=== PATIENT | male | born 1945 | race Caucasian/White ===

== ENCOUNTER 2020-01-03 12:43 | Emergency (ER) | payer OTHER, SELFPAY ==
[2020-01-03 12:47] VITALS: BP 156/76; PULSE 80; RESP 18; TEMP 36.7; O2SAT 96; BMI 24.5
--- NOTE | 2020-01-03 12:59 | CT_ITS ---
WS: [id number] CT ABDOMEN PELVIS TECHNIQUE: Noncontrast CT of the abdomen and pelvis with coronal and sagittal reformatted images. CLINICAL INFORMATION: abd pain COMPARISON: None. DLP: 421.[address] scans at [facility] use at least one of these dose optimization techniques: automat ed exposure control; mA and/or kV adjustment per patient size (includes targeted exams where dose is matched to clinical indication); or iterative reconstruction. FINDINGS: Noncontrast liver is unremarkable. A few hepatic cysts the largest measuring 1.9 cm left hepatic lobe . Normal gallbladder. Lung bases are well aerated. Subsegmental atelectasis in the lung bases. Normal GE junction. Fatty atrophy of the pancreas. Normal caliber abdominal aorta. Aortic calcification. Tortuous common iliac arteries bilaterally. Mild diffuse bladder wall thickening with urine distended bladder. This can be seen with chronic cyst itis or bladder outlet obstruction. Prominent prostate measuring 4.5 cm. Recommend correlation PSA. Normal sigmoid colon. Adrenal glands are normal. No hydronephrosis in either kidney. Pelvic phlebolit hs. No obstructing renal or ureteral calculi. No periaortic lymphadenopathy. No inguinal lymphadenopa thy. Disc space narrowing throughout the lumbar spine. CT/CT abdomen pelvis wo con [id number] IMPRESSION: 1. No hydronephrosis in either kidney. No obstructing renal or ureteral calcul i. 2. Urine distended bladder with mild wall thickening. This can be seen with ch ronic cystitis or bladder outlet obstruction. Prominent prostate measuring 4.5 CM. Recommend correlation PSA. 3. Normal sigmoid colon. 4. No evidence of small or large bowel obstruction. 5. A few hepatic cysts largest in left hepatic lobe measuring 1.9 CM. 6. Subsegmental atelectasis in the lung bases. 7. Normal caliber abdominal aorta with tortuous iliac arteries.
--- NOTE | 2020-01-03 13:15 | ED_ITS ---
HPI - Male Genitourinary General: Chief complaint: Urogenital-Male Stated complaint: kidney problems Time Seen by Provider: 01/03/20 12:51 Source: patient Mode of arrival: ambulatory Limitations: no limitations History of Present Illness: HPI Narrative: Jose is a 74-year-old male states he has been having difficulty urinating over the last 2 weeks. He states that he is unable to get a good stream and mainly has dribbling. He has some lower abdominal pain and feels like he just cannot empty his bladder. He denies any fever. He denies any vomiting or diarrhea. Associated symptoms: Deny nausea or vomiting Review of Systems Const: Denies: fever(s), chills, body aches or change in appetite Eyes: Denies: blurry vision or eye discomfort ENMT: Denies: throat pain or dental pain Card: Denies: chest pain Resp: Denies: dyspnea GI: Denies: abdominal pain, nausea, vomiting or diarrhea : Reports: difficulty urinating, urinary frequency, urinary hesitancy and urinary dribbling Musc: Denies: neck pain or back pain Skin/Breast: Denies: rash Neuro: Denies: headache(s) Psych: Denies: depression Artur/Lymph: Denies: easy bruising All/Imm: Denies: urticaria PFSH ED PFSH: Family History Mother , IN HER 80'S PROGRESSIVE DEMENTIA Dementia Father , AT AGE 86 Stroke Social History Smoking and tobacco status: current every day smoker cigars Alcohol intake: unknown Adopted: No Caregiver/support person: No Lives independently: No Household members: spouse Marital status: Current occupational status: retired Physical Exam Const: COMMON NORMALS: no acute distress, patient oriented x3 and healthy appearing HENMT: COMMON NORMALS: normocephalic and atraumatic HEAD & SCALP: normocephalic and atraumatic Eye: COMMON NORMALS: Equal, round and reactive pupils present and EOMs intact bilaterally PUPIL: Yes Equal, round and reactive pupils present Neck/C-Spine: COMMON NORMALS: full ROM and supple Chest: COMMONS NORMALS: normal inspection of the chest and normal palpation of entire chest wall Resp: COMMON NORMALS: normal respiratory effort, No retractions, No use of accessory muscles and clear to auscultation bilaterally AUSCULTATION: clear to auscultation bilaterally Cardio: COMMON NORMALS: regular rate, regular rhythm and No murmurs present (Cardio) RATE: regular rate RHYTHM: regular rhythm GI: COMMON NORMALS: Normal to inspection, nondistended, normoactive bowel sounds present, Soft to palpation, non-tender and no masses PALPATION: Yes Soft to palpation Extremity: COMMON NORMALS: normal to inspection and full ROM Neuro: COMMON NORMALS: patient oriented x3, moves all extremities and no focal motor deficits Psych: COMMON NORMALS: mental status grossly normal, Normal thought process present and cooperative THOUGHT PROCESS: Normal thought process present Skin: COMMON NORMALS: no rashes or lesions noted and no wounds GENERAL SKIN EXAM: no rashes or lesions noted Course Vital Signs: Vital signs: Vital Signs Temperature 98.1 F 01/03/20 12:47 Pulse Rate 78 01/03/20 15:29 Respiratory Rate 18 01/03/20 15:29 Blood Pressure 134/73 01/03/20 15:29 Pulse Oximetry 100 01/03/20 15:29 MDM - Male MDM Narrative: Medical decision making narrative: Patient presents here with urinary retention. Could be due to an infection as his urine does show cystitis. CT showed distended bladder and he is having quite a difficult time urinating here. We will place a Baker and treat his UTI and have him follow-up with Dr. Chopra in 2 to 4 days. Patient understands and agrees to plan. He has any worsening symptoms he is to return. Lab Data: Labs: Lab Results 01/03/20 01/03/20 01/03/20 Range/Units 13:20 13:20 13:29 WBC 13.3 H (4.0-10.0) 10^3/ uL RBC 4.55 (4.1-5.3) 10^6/u L Hgb 14.5 (11.7-16.6) g/dL Hct 43.3 (42.0-52.0) % MCV 95.2 H (80-94) fL MCH 31.9 (28.0-34.0) pg MCHC 33.5 (30.0-36.0) g/dL RDW 13.1 (12.1-15.1) % Plt Count 173 (130-400) 10^3/c mm MPV 11.1 H (7.4-10.4) fL Neut % (Auto) 83.6 % Lymph % (Auto) 8.4 % Reeves % (Auto) 7.0 % Eos % (Auto) 0.4 % Baso % (Auto) 0.3 % Neut # (Auto) 11.15 H (1.8-7.7) 10^3/u L Lymph # (Auto) 1.1 (0.8-4.8) 10^3/u L Reeves # (Auto) 0.9 (0.2-0.9) 10^3/u L Eos # (Auto) 0.1 (0.0-0.8) 10^3/u L Baso # (Auto) 0.0 (0.0-0.1) 10^3/u L Nucleated RBC % (a uto) 0 % Nucleated RBCs # 0.0 /100WBC Sodium 135 L (136-145) mmol/L Potassium 4.7 (3.5-5.1) mmol/L Chloride 99 (98-107) mmol/L Carbon Dioxide 26 (22-29) mmol/L Anion Gap 14.7 (5-19) BUN 22 (8-23) mg/dL Creatinine 1.0 (0.7-1.2) mg/dL GFR Calculation Not Reportable Glucose 320 H (65-115) mg/dL Calculated Osmolal ity 296 H (285-295) mOsm/k g Calcium 8.9 (8.5-10.5) mg/dL Total Bilirubin 0.5 (0.15-1.2) mg/dL AST 13 (0-40) U/L ALT 13 (0-41) U/L Alkaline Phosphata se 140 H (40-130) IU/L Total Protein 6.7 (6.6-8.7) g/dL Albumin 4.0 (3.5-5.2) g/dL Globulin 2.7 (1.3-4.6) g/dL Urine Color Yellow (Yellow) Urine Appearance Hazy A (CLEAR) Urine pH 5 (5-7) Ur Specific Gravit y 1.020 (1.005-1.030) Urine Protein Neg (Negative) Urine Glucose (UA) 4+ H (Normal) Urine Ketones 1+ H (Negative) Urine Blood 2+ H (Negative) Urine Nitrate Positive H (Negative) Urine Bilirubin Neg (Negative) Urine Urobilinogen Norm (Negative) mg/dL Ur Leukocyte Haylee ase Trace H (Negative) Urine RBC 5-10 H (0-2) /hpf Urine WBC 80-100 H (0-5) /hpf Ur Squamous Epith Cells 0-4 H (0-5) /hpf Amorphous Sediment Not Reportable Urine Bacteria 4+ H (NONE) /hpf Imaging Data: CT Abd/Pel: Attestation: I personally reviewed and interpreted this imaging study as follows: Radiologist's impression: [facility] [address] [place] [address] CT Scan Report Signed Patient: Jose Jones Unit #: [id number] : 1945 Age/Sex: 74 / M ADM Date: 01/03/20 Loc: ER Room/Bed: Attending Dr: Ordering Provider/Ordering MD: dIania Desir MD Date of Service: 01/03/20 Procedure(s): CT abdomen pelvis con [id number] Accession Number(s): [id number] Report Number: [id number] WS: [id number] CT ABDOMEN PELVIS TECHNIQUE: Noncontrast CT of the abdomen and pelvis with coronal and sagittal reformatted images. CLINICAL INFORMATION: abd pain COMPARISON: None. DLP: 421.[address] scans at [facility] use at least one of these dose optimization techniques: automated exposure control; mA and/or kV adjustment per patient size (includes targeted exams where dose is matched to clinical indication); or iterative reconstruction. FINDINGS: Noncontrast liver is unremarkable. A few hepatic cysts the largest measuring 1.9 cm left hepatic lobe. Normal gallbladder. Lung bases are well aerated. Subsegmental atelectasis in the lung bases. Normal GE junction. Fatty atrophy of the pancreas. Normal caliber abdominal aorta. Aortic calcification. Tortuous common iliac arteries bilaterally. Mild diffuse bladder wall thickening with urine distended bladder. This can be seen with chronic cystitis or bladder outlet obstruction. Prominent prostate measuring 4.5 cm. Recommend correlation PSA. Normal sigmoid colon. Adrenal glands are normal. No hydronephrosis in either kidney. Pelvic phleboliths. No obstructing renal or ureteral calculi. No periaortic lymphadenopathy. No inguinal lymphadenopathy. Disc space narrowing throughout the lumbar spine. CT/CT abdomen pelvis wo con [id number] IMPRESSION: 1. No hydronephrosis in either kidney. No obstructing renal or ureteral calculi. 2. Urine distended bladder with mild wall thickening. This can be seen with chronic cystitis or bladder outlet obstruction. Prominent prostate measuring 4.5 CM. Recommend correlation PSA. 3. Normal sigmoid colon. 4. No evidence of small or large bowel obstruction. 5. A few hepatic cysts largest in left hepatic lobe measuring 1.9 CM. 6. Subsegmental atelectasis in the lung bases. 7. Normal caliber abdominal aorta with tortuous iliac arteries. Discharge Plan Discharge Patient Disposition: Home Clinical Impression: Acute retention of urine Urinary tract infection Qualifiers: Urinary tract infection type: acute cystitis Hematuria presence: without hematuria Qualified Code(s): N30.00 - Acute cystitis without hematuria Condition: Stable Prescriptions: New Keflex 500 mg capsule 500 mg PO Q6H 7 Days Qty: 28 RF: 0 No Action tamsulosin 0.4 mg Capsule 0.4 mg PO BID RF: 0 Novolog U-100 Insulin aspart 100 unit/mL Solution See Rx Instructions .ROUTE .COMPLEX RF: 0 lisinopril 10 mg Tablet 10 mg PO DAILY RF: 0 meclizine 25 mg Tablet,Chewable 25 mg PO DAILY PRN (Reason: Dizziness) RF: 0 Centrum Silver Men 300-600-300 mcg Tablet 1 tab PO DAILY RF: 0 Lantus U-100 Insulin 18 unit SUBCUT BEDTIME RF: 0 simvastatin 20 mg Tablet 20 mg PO DAILY RF: 0 Discharge Orders: Discharge Order (Routine); Ordered 01/03/20 Ordered By: Idania Desir Referrals: Sanchez Chopra MD [Physician] - 1-3 days Jose Abraham DO [Primary Care Provider] - Discharge Diet: Advance as tolerated Discharge Activity: Resume usual activity Patient Instructions: Urinary Tract Infection in Men (ED), Baker Catheter Placement and Care (ED) Coding Level of Care Code ED Lode Miner for Chg Fwd Exam Comprehensive
[2020-01-03 13:24] VITALS: BP 156/81; PULSE 80; RESP 18; O2SAT 96
[2020-01-03 13:34] LABS: Basophils % 0.3 %; Eosinophils # 0.1 10^3/uL (0.0-0.8); Eosinophils % 0.4 %; Hematocrit 43.3 % (42.0-52.0); Hemoglobin 14.5 g/dL (11.7-16.6); Lymphocytes # 1.1 10^3/uL (0.8-4.8); Lymphocytes % 8.4 %; Mean Corpuscular HGB Conc 33.5 g/dL (30.0-36.0); Mean Corpuscular Hemoglobin 31.9 pg (28.0-34.0); Mean Corpuscular Volume 95.2 fL (80-94); Mean Platelet Volume 11.1 fL (7.4-10.4); Monocytes # 0.9 10^3/uL (0.2-0.9); Neutrophils # 11.15 10^3/uL (1.8-7.7); Neutrophils % 83.6 %; Nucleated Red Blood Cells % 0 %; Platelet Count 173 10^3/cmm (130-400); Red Blood Count 4.55 10^6/uL (4.1-5.3); Red Cell Distribution Width 13.1 % (12.1-15.1); White Blood Count 13.3 10^3/uL (4.0-10.0)
[2020-01-03 13:51] LABS: Alanine Aminotransferase 13 U/L (0-41); Alkaline Phosphatase 140 IU/L (40-130); Anion Gap 14.7 (5-19); Aspartate Amino Transferase 13 U/L (0-40); Blood Urea Nitrogen 22 mg/dL (8-23); Calcium 8.9 mg/dL (8.5-10.5); Carbon Dioxide 26 mmol/L (22-29); Chloride 99 mmol/L (98-107); Globulin 2.7 g/dL (1.3-4.6); Glucose 320 mg/dL (65-115); Osmolality Calculated 296 mOsm/kg (285-295); Potassium 4.7 mmol/L (3.5-5.1); Sodium 135 mmol/L (136-145); Total Bilirubin 0.5 mg/dL (0.15-1.2); Total Protein 6.7 g/dL (6.6-8.7)
[2020-01-03 14:01] LABS: Bilirubin Urine Neg (Negative); Blood Urine 2+ (Negative); Glucose Urine UA 4+ (Normal); Ketones Urine 1+ (Negative); Nitrate Urine Positive (Negative); Protein Urine Neg (Negative); Urine Appearance Hazy (CLEAR); Urine Color Yellow (Yellow); pH Urine 5 (5-7)
[2020-01-03 14:02] LABS: Add Urine Microscopic? YES; Leukocyte Esterase Urine Trace (Negative); Urobilinogen Urine Norm (Negative)
[2020-01-03 14:04] LABS: Add Urine Culture? Yes; Bacteria Urine 4+ /hpf; Squamous Epithelial Cell Urine 0-4 /hpf (0-5); WBC Urine 80-100 /hpf (0-5)
[2020-01-03] MEDS: cefTRIAXone 1,000 MG in sodium chloride 0.9% (plus) 50 ML 100 MG IV (14:12)
[2020-01-03 15:29] VITALS: BP 134/73; PULSE 78; RESP 18; O2SAT 100
[2020-01-03 17:32] VITALS: BP 148/80; PULSE 74; RESP 18; TEMP 37.1; O2SAT 100
--- NOTE | 2020-01-04 08:41 | DCPLANNER ---
personalized living manager nurse had message to schedule a follow up appointment for patient with Dr. Chopra. personalized living manager nurse called the office of Dr. Chopra, spoke with Gertrude, gave clinic patients information. personalized living manager nurse was told that patients information would be printed and reviewed. Clinic will call patient with appointment information.
--- NOTE | 2020-01-05 10:50 | DCPLANNER ---
Patient has a follow up appointment scheduled for , January 13, 2020 at 3:[address] Jesus. Clinic will call patient with appointment information.
--- NOTE | 2020-03-03 12:19 | DCPLANNER ---
Patient had a follow up appointment scheduled for 01.13.[address] Chopra - patient did attend the appointment.
== END 2020-01-03 17:35 | disposition home or self-care (01) ==
PROVIDERS: Emergency Provider Emergency Medicine; PCP Emergency Medicine Emergency Medical Services
DX: N30.00 Acute cystitis without hematuria (principal); R33.9 Retention of urine, unspecified; Z79.4 Long term (current) use of insulin; F17.210 Nicotine dependence, cigarettes, uncomplicated
CPT/HCPCS: 12345; 51702; 74176; 80053; 81001; 85025; 87077; 87086; 87186; 96365; 99283; J0696

== ENCOUNTER → 2020-02-04 10:59 | Outpatient (BNVA) | payer OTHER, SELFPAY | PROVIDERS: PCP Emergency Medicine Emergency Medical Services; Visit Provider Urology | DX: N40.1 Benign prostatic hyperplasia with lower urinary tract symptoms (principal); N13.8 Other obstructive and reflux uropathy; N30.90 Cystitis, unspecified without hematuria; R33.9 Retention of urine, unspecified; N39.0 Urinary tract infection, site not specified | CPT/HCPCS: 81003 ==

== ENCOUNTER → 2020-05-04 08:07 | Outpatient (BNVA) | payer OTHER, SELFPAY | PROVIDERS: PCP Emergency Medicine Emergency Medical Services; Visit Provider Urology | DX: N13.8 Other obstructive and reflux uropathy (principal); N40.1 Benign prostatic hyperplasia with lower urinary tract symptoms; N30.90 Cystitis, unspecified without hematuria; R33.9 Retention of urine, unspecified | CPT/HCPCS: 81003 ==

== ENCOUNTER → 2020-05-10 14:55 | Outpatient (BNVA) | payer OTHER, SELFPAY | PROVIDERS: PCP Emergency Medicine Emergency Medical Services; Visit Provider Internal Medicine | DX: E11.9 Type 2 diabetes mellitus without complications (principal); E16.0 Drug-induced hypoglycemia without coma; T38.3X5A Adverse effect of insulin and oral hypoglycemic [antidiabetic] drugs, initial encounter | CPT/HCPCS: 95251; 99205 ==

== ENCOUNTER → 2020-10-17 08:37 | Outpatient (BNVA) | payer OTHER, SELFPAY | PROVIDERS: Visit Provider Orthopaedic Surgery | DX: Z01.812 Encounter for preprocedural laboratory examination (principal); Z20.822 Contact with and (suspected) exposure to COVID-19 | CPT/HCPCS: 87635 ==

== ENCOUNTER 2020-10-23 07:24 | Day surgery (SDC) | payer OTHER, SELFPAY ==
[2020-10-20 13:10] VITALS: BMI 25.9
[2020-10-23] VITALS (11 sets, daily range): BP systolic 91–135; BP diastolic 50–90; PULSE 58–85; RESP 16–20; TEMP 36.2–36.6; O2SAT 93–100
--- NOTE | 2020-10-23 07:46 | ECG_ITS ---
[facility] Test Date: 2020-10-23 Pat Name: Jose Jones Department: Room: Gender: Male Coil Builder: : 1945 Requested By: Ruben Cruz Order Number: [id number] Le MD: Lani Solis M.D. Measurements Intervals [place] Rate: 58 P: 56 MO: 161 QRS: -9 QRSD: 90 T: 43 QT: 441 QTc: 436 Interpretive Statements SINUS BRADYCARDIA Compared to ECG 09/15/2017 19:24:05 No significant changes Electronically Signed On 10-23-2020 13:17:46 CDT by Lani Solis M.D. [id number]
[2020-10-23] MEDS: sodium chloride 0.9% 1,000 ML 30 ML IV (08:05)
[2020-10-23 08:08] LABS: Glucose Point of Care 262 mg/dL (70-110)
--- NOTE | 2020-10-23 08:39 | ANES.PREANE2 ---
Pre-Anesthetic Assessment Pre-Anesthetic Assessment: Height/Weight: Height 1.75 m Weight 79.832 kg Temp Pulse Resp BP Pulse Ox 97.3 F L 72 16 130/70 97 10/23/20 07:40 10/23/20 07:40 10/23/20 07:40 10/23/20 07:40 10/23/20 07:40 Preop Diagnosis: Carpal tunnel syndrome/Cubital tunnel syndrome Left Proposed Procedure: Operation Date: 10/23/20 09:15 Proposed Procedures p Carpal Tunnel Release [id number] G56.01(Left) - Cristian Almendarez MD Was Beta Gianni taken within 24 hours: N/A Was Clonidine taken within 24 hours: N/A Last intake: Intake Last Liquid Date 10/22/20 Last Liquid Time 19:30 Last Solid Date 10/22/20 Last Solid Time 19:30 Social: Social History: Tobacco and No alcohol Exam: Pre-Anes Outpt Exam: alert, oriented x 3 and regular rate & rhythm Additional Exam Findings (including area of procedure): Nurse reported irregular rhythm, EKG sinus cindi, regular and cindi (68) on exam Airway: Submandibular: WNL Cervical ROM: WNL MP: 2 Dentition: Partials Pulmonary: Pulmonary: COPD CV/HEM: CV/HEM: HTN Comments: Very active and fit appearing Metabolic: Metabolic: DM and Hyperlipidemia Anesthetic Plan: ASA status: 3 Anesthesia: General Risk of > 500 ml blood loss (7ml/kg in children): No Meds/Allergies Current Medications: Current Medications Generic Name Dose Route Start Last Admin Trade Name Freq PRN Reason Stop Dose Admin Sodium Chloride 1,000 mls @ 30 ml s/hr 10/23/20 07:45 10/23/20 08:05 Sodium Chloride 0.9% IV 10/24/20 07:44 30 mls/hr .Q24H KENNY Administration PFSH Anesthesia PFSH: Medical History 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 Cystitis DM2 (diabetes mellitus, type 2) Hearing loss HTN (hypertension) Hyperlipidemia IDDM (insulin dependent diabetes mellitus) Polyp of sigmoid colon Recurrent UTI Urinary retention Family History Mother , IN HER 80'S PROGRESSIVE DEMENTIA Dementia Father , AT AGE 86 Stroke Social History Smoking and tobacco status: never smoked Alcohol intake: never Adopted: No Caregiver/support person: No Lives independently: No Household members: spouse Marital status: Current occupational status: retired Data Anesthesia Other Labs: Laboratory Results - last 48 hr 10/23/20 08:01 POC Glucose 262 H Cardiac Studies: No Data to Display
--- NOTE | 2020-10-23 09:25 | W.PM.OPSUD ---
Surgery/Procedure H&P Update DATE OF PROCEDURE: October 23, 2020 DATE H&P PERFORMED: 10/11/20 PREOP DIAGNOSIS: Carpal tunnel syndrome/Cubital tunnel syndrome Left PLANNED PROCEDURE: Operation Date: 10/23/20 09:15 Proposed Procedures p Carpal Tunnel Release [id number] G56.01(Left) - Cristian Almendarez MD
--- NOTE | 2020-10-23 10:35 | P.OP_ITS ---
Operative Report Date of procedure: October 23, 2020 Pre-op Diagnosis: Carpal tunnel syndrome/Cubital tunnel syndrome Left Post-op diagnosis: same Post-op Findings: Same Procedure Done: Can, left carpal tunnel release Pathology: none sent Anesthesia: General Estimated blood loss (mL): 10 Findings: The patient had dense scar behind the medial epicondyle around the ulnar nerve. No masses or space-occupying lesions were seen around the carpal tunnel Condition: stable Disposition: PACU Procedure: The patient was taken to the operating room and given a general anesthesia. A tourniquet was inflated to 225 mmHg. A timeout was performed. A 5 cm long incision was made behind the medial epicondyle. Dissection was accomplished bluntly under loupe magnification identifying the ulnar nerve proximally. Utilizing a hemostat the fascia over the nerve was elevated and incised proximally. Dissection was then carried distally behind the medial epicondyle and into the flexor carpi ulnaris musculature. Dissection was stopped with the first muscular branches identified. Elbow was brought through range of motion with the nerve seen to stay reduced behind the medial epicond yle. No formal transition was thought to be warranted. Wounds were irrigated with saline. A 3 cm long incision was made in line with the fourth ray from the distal edge of the carpal tunnel extending proximally. The subcutaneous fat and palmar fascia was divided with a scalpel blade. Under loupe magnification the ulnar neurovascular bundle was identified distally. A hemostat could be passed under the transverse carpal ligament allowing the distal 25% to be divided. A slotted guide was then passed beneath the transverse carpal ligament and the middle 50% divided. Blunt scissors were then passed over the guide freeing the proximal ligament. The tourniquet was deflated. Hemostasis provided with electrocautery. Wound edges were infiltrated with 10 cc of a half percent Marcaine solution applied to the edges of the carpal tunnel incision and elbow incision each. Carpal tunnel skin edges were reapproximated with 3-0 Prolene. Sterile dressings were applied. Deep tissues were closed with 3-0 Vicryl. The skin was closed with a running 3- 0 Prolene. Steri-Strips were applied. Xeroform gauze, 4 x 4's, compressive labral, and Howard wrap, and a sling were applied. The patient was taken recovery room in stable condition.
--- NOTE | 2020-10-23 10:42 | SUR.PHASEI ---
PT TO PACU SLEEPY REPOSITIONS SELF TO LT SIDE WARM BLANKETS X 2 DISTAL LT FINGERS PINK WARM WITH CAP REFILL LESS THAN 3 SECONDS VSS, PT ON RA SATS 94%
[2020-10-23 10:57] LABS: Glucose Point of Care 245 mg/dL (70-110)
--- NOTE | 2020-10-23 15:37 | ANE.PACU2 ---
Inpatient post-anesthesia follow up: Airway intact: Yes Vital signs: Temperature 97.2 F Pulse Rate 63 Respiratory Rate 18 Blood Pressure 114/87 Pulse Oximetry 100 Oxygen Delivery Me thod Room Air Oxygen Flow Rate Fraction of Inspir ed Oxygen Hydration adequate: Yes Nausea and vomiting: No Pain level: 2 Mental status: Baseline
== END 2020-10-23 11:38 | disposition home or self-care (01) ==
PROVIDERS: PCP Emergency Medicine Emergency Medical Services; Visit Provider Orthopaedic Surgery
PROC: (CPT 64721; principal; 2020-10-23 09:05)
PROC: (CPT 64718; 2020-10-23 09:05)
DX: G56.02 Carpal tunnel syndrome, left upper limb (principal); G56.22 Lesion of ulnar nerve, left upper limb; J44.9 Chronic obstructive pulmonary disease, unspecified; I10 Essential (primary) hypertension; E11.9 Type 2 diabetes mellitus without complications; E78.5 Hyperlipidemia, unspecified; N40.1 Benign prostatic hyperplasia with lower urinary tract symptoms; N13.8 Other obstructive and reflux uropathy; Z79.4 Long term (current) use of insulin
CPT/HCPCS: 64718; 64721; 36416; 82962; 93005; J0690; J1100; J2405; J2704; J2710; J3010; J3490; J7030

== ENCOUNTER → 2021-05-07 13:58 | Outpatient (BNVA) | payer OTHER, SELFPAY | PROVIDERS: PCP Emergency Medicine Emergency Medical Services; Visit Provider Urology | DX: N13.8 Other obstructive and reflux uropathy (principal); N40.1 Benign prostatic hyperplasia with lower urinary tract symptoms | CPT/HCPCS: 81003 ==

== ENCOUNTER → 2023-03-12 14:53 | Outpatient (BNVA) | payer OTHER, SELFPAY | PROVIDERS: PCP Emergency Medicine Emergency Medical Services; Visit Provider Dermatology | DX: Z85.828 Personal history of other malignant neoplasm of skin (principal); L57.0 Actinic keratosis; L91.8 Other hypertrophic disorders of the skin; L57.8 Other skin changes due to chronic exposure to nonionizing radiation; L81.4 Other melanin hyperpigmentation; L82.1 Other seborrheic keratosis | CPT/HCPCS: 11200; 17000; 99203 ==

== ENCOUNTER → 2023-03-28 08:43 | Outpatient (BNVA) | payer OTHER, SELFPAY | PROVIDERS: PCP Emergency Medicine Emergency Medical Services; Visit Provider Internal Medicine | DX: E11.649 Type 2 diabetes mellitus with hypoglycemia without coma (principal); E16.0 Drug-induced hypoglycemia without coma; T38.3X5A Adverse effect of insulin and oral hypoglycemic [antidiabetic] drugs, initial encounter; E78.2 Mixed hyperlipidemia; X58.XXXA Exposure to other specified factors, initial encounter | CPT/HCPCS: 99214 ==

== ENCOUNTER → 2023-07-10 09:57 | Outpatient (BNVA) | payer OTHER, SELFPAY | PROVIDERS: PCP Emergency Medicine Emergency Medical Services; Visit Provider Internal Medicine | DX: E11.649 Type 2 diabetes mellitus with hypoglycemia without coma (principal); E16.0 Drug-induced hypoglycemia without coma; T38.3X5A Adverse effect of insulin and oral hypoglycemic [antidiabetic] drugs, initial encounter; E78.2 Mixed hyperlipidemia; X58.XXXA Exposure to other specified factors, initial encounter; Z79.4 Long term (current) use of insulin | CPT/HCPCS: 99214 ==

== ENCOUNTER → 2023-09-10 14:15 | Outpatient (BNVA) | payer OTHER, SELFPAY | PROVIDERS: PCP Emergency Medicine Emergency Medical Services; Visit Provider Nurse Practitioner Family | DX: L57.0 Actinic keratosis (principal); L81.4 Other melanin hyperpigmentation; L82.1 Other seborrheic keratosis; I99.8 Other disorder of circulatory system; S40.862A Insect bite (nonvenomous) of left upper arm, initial encounter; X58.XXXA Exposure to other specified factors, initial encounter; Z85.828 Personal history of other malignant neoplasm of skin | CPT/HCPCS: 17000; 99214 ==

== ENCOUNTER → 2023-10-15 09:04 | Outpatient (BNVA) | payer OTHER, SELFPAY | PROVIDERS: PCP Emergency Medicine Emergency Medical Services; Visit Provider Internal Medicine | DX: E11.9 Type 2 diabetes mellitus without complications (principal) | CPT/HCPCS: 80053; 80061; 82043; 83036 ==

== ENCOUNTER → 2023-10-22 09:54 | Outpatient (BNVA) | payer OTHER, SELFPAY | PROVIDERS: PCP Emergency Medicine Emergency Medical Services; Visit Provider Internal Medicine | DX: E11.649 Type 2 diabetes mellitus with hypoglycemia without coma (principal); E16.0 Drug-induced hypoglycemia without coma; T38.3X5A Adverse effect of insulin and oral hypoglycemic [antidiabetic] drugs, initial encounter; E78.2 Mixed hyperlipidemia; X58.XXXA Exposure to other specified factors, initial encounter | CPT/HCPCS: 99214 ==

== ENCOUNTER → 2023-12-18 13:05 | Outpatient (BNVA) | payer OTHER, SELFPAY | PROVIDERS: PCP Emergency Medicine Emergency Medical Services; Visit Provider Nurse Practitioner Family | DX: D48.5 Neoplasm of uncertain behavior of skin (principal); L57.0 Actinic keratosis; Z85.828 Personal history of other malignant neoplasm of skin; L82.1 Other seborrheic keratosis; I99.8 Other disorder of circulatory system | CPT/HCPCS: 11102; 17000; 69100; 99213 ==

== ENCOUNTER → 2024-01-06 07:57 | Outpatient (BNVA) | payer OTHER, SELFPAY | PROVIDERS: PCP Emergency Medicine Emergency Medical Services; Visit Provider Dermatology | DX: C44.219 Basal cell carcinoma of skin of left ear and external auricular canal (principal); C44.622 Squamous cell carcinoma of skin of right upper limb, including shoulder; L82.1 Other seborrheic keratosis; L81.4 Other melanin hyperpigmentation; L44.8 Other specified papulosquamous disorders | CPT/HCPCS: 11602; 13121; 14060; 17311; 99213 ==

== ENCOUNTER → 2024-01-12 08:10 | Outpatient (BNVA) | payer OTHER, SELFPAY | PROVIDERS: PCP Emergency Medicine Emergency Medical Services; Visit Provider Internal Medicine | DX: E11.9 Type 2 diabetes mellitus without complications (principal); E16.0 Drug-induced hypoglycemia without coma; T38.3X5A Adverse effect of insulin and oral hypoglycemic [antidiabetic] drugs, initial encounter; E78.2 Mixed hyperlipidemia | CPT/HCPCS: 80053; 80061; 82043; 83036 ==

== ENCOUNTER 2024-03-11 09:55 | Outpatient (CLI) | payer OTHER, SELFPAY ==
--- NOTE | 2024-03-11 10:06 | CT_ITS ---
WS: [id number] CT HEAD WITH AND WITHOUT CONTRAST HISTORY: SENSORINEURAL HEARING LOSS BILATERAL TECHNIQUE: Noncontrast 2.0 mm axial images obtained from the vertex to the skull base. Additional mk ging performed at 2.5 mm axial images status post IV contrast. Bone and soft tissue windows are revie wed. All CT scans at [facility] use at least one of these dose optimization techniques: autom ated exposure control; mA and/or kV adjustment per patient size (includes targeted exams where dose i s matched to clinical indication); or iterative reconstruction. CONTRAST: Omnipaque 350; 100 mL IV. DLP: 2035.10 mGy.cm COMPARISON: None available. No acute intracranial hemorrhage, edema or midline shift. Mild cerebral atrophy and minimal small ves abhi disease. No prior infarct. No enhancing mass or vascular malformations identified. Dural venous sinuses are normally enhancing. Visualized [place] of [place] is unremarkable. Paranasal sinuses as visualized: Clear. Mastoid air cells: Clear. Calvarium and scalp: Intact. Metallic fragment in the scalp over the posterior LEFT parietal bone. No soft tissue masses or along the internal or external auditory canals. No fluid in the mastoid air cells. CT/CT head wo/w con [id number] IMPRESSION: 1. Negative CT appearance of the mastoid air cells and the internal auditory c anals. 2. No enhancing masses or vascular malformations. 3. Mild atrophy and small vessel disease.
[2024-03-11 10:43] LABS: Blood Urea Nitrogen 13 mg/dL (8-23)
[2024-03-11] MEDS: iohexol 350 mg/mL 500 mL Btl (per mL) IV (10:47)
== END 2024-03-11 09:56 | disposition home or self-care (01) ==
LOC: RAD 09:57
PROVIDERS: PCP Family Medicine; Visit Provider Otolaryngology
DX: H90.6 Mixed conductive and sensorineural hearing loss, bilateral (principal); G31.89 Other specified degenerative diseases of nervous system; Z18.10 Retained metal fragments, unspecified
CPT/HCPCS: 70470; 82565; 84520

== ENCOUNTER → 2024-03-29 11:23 | Outpatient (BNVA) | payer OTHER, SELFPAY | PROVIDERS: PCP Family Medicine; Visit Provider Internal Medicine | DX: E11.9 Type 2 diabetes mellitus without complications (principal); E16.0 Drug-induced hypoglycemia without coma; T38.3X5A Adverse effect of insulin and oral hypoglycemic [antidiabetic] drugs, initial encounter; E78.2 Mixed hyperlipidemia; X58.XXXA Exposure to other specified factors, initial encounter | CPT/HCPCS: 99214 ==

== ENCOUNTER → 2024-06-18 10:30 | Outpatient (BNVA) | payer OTHER, SELFPAY | PROVIDERS: PCP Family Medicine; Visit Provider Internal Medicine | DX: E11.9 Type 2 diabetes mellitus without complications (principal); E16.0 Drug-induced hypoglycemia without coma; T38.3X5A Adverse effect of insulin and oral hypoglycemic [antidiabetic] drugs, initial encounter; E78.2 Mixed hyperlipidemia; X58.XXXA Exposure to other specified factors, initial encounter | CPT/HCPCS: 80053; 80061; 82043; 83036 ==

== ENCOUNTER → 2024-06-21 10:05 | Outpatient (BNVA) | payer OTHER, SELFPAY | PROVIDERS: PCP Family Medicine; Visit Provider Internal Medicine | DX: E11.9 Type 2 diabetes mellitus without complications (principal); E78.2 Mixed hyperlipidemia; E16.0 Drug-induced hypoglycemia without coma; T38.3X5A Adverse effect of insulin and oral hypoglycemic [antidiabetic] drugs, initial encounter | CPT/HCPCS: 99214 ==

== ENCOUNTER → 2024-09-09 10:41 | Outpatient (BNVA) | payer OTHER, SELFPAY | PROVIDERS: PCP Family Medicine; Visit Provider Nurse Practitioner Family | DX: L81.4 Other melanin hyperpigmentation (principal); L82.1 Other seborrheic keratosis; I99.8 Other disorder of circulatory system; L57.8 Other skin changes due to chronic exposure to nonionizing radiation; Z08 Encounter for follow-up examination after completed treatment for malignant neoplasm; Z85.828 Personal history of other malignant neoplasm of skin; L57.0 Actinic keratosis | CPT/HCPCS: 17000; 99213 ==

== ENCOUNTER → 2024-09-20 10:07 | Outpatient (BNVA) | payer OTHER, SELFPAY | PROVIDERS: PCP Family Medicine; Visit Provider Internal Medicine | DX: E11.9 Type 2 diabetes mellitus without complications (principal); E78.2 Mixed hyperlipidemia; E16.0 Drug-induced hypoglycemia without coma | CPT/HCPCS: 99214 ==

== ENCOUNTER → 2024-12-14 08:56 | Outpatient (BNVA) | payer OTHER, SELFPAY | PROVIDERS: PCP Family Medicine; Visit Provider Internal Medicine | DX: E11.649 Type 2 diabetes mellitus with hypoglycemia without coma (principal); E16.0 Drug-induced hypoglycemia without coma; T38.3X5A Adverse effect of insulin and oral hypoglycemic [antidiabetic] drugs, initial encounter; E78.2 Mixed hyperlipidemia; X58.XXXA Exposure to other specified factors, initial encounter; Z79.4 Long term (current) use of insulin | CPT/HCPCS: 99214 ==